=== PATIENT | female | born 1975 | race Hispanic/Latino ===

== ENCOUNTER 2016-09-22 20:35 | Emergency (ER) | payer OTHER ==
[2016-09-22 20:35] VITALS: BMI 26.5
[2016-09-22 21:41] VITALS: BP 105/64; PULSE 70; RESP 16; TEMP 97.3; O2SAT 98
--- NOTE | 2016-09-22 23:55 | C.PDOC ---
History Of Present Illness 40 year old patient, with a past medical history of hypertension, anxiety, depression, bipolar disorder, and schizophrenia, is brought to the ED by ambulance complaining of feeling anxious. Patient is a poor historian. She was sleeping during the the history and physical exam. Patient denies any depression , suicidal or homicidal ideation. Time Seen by Provider: 09/22/16 22:07 Chief Complaint (Nursing): Anxiety History Per: Patient History/Exam Limitations: no limitations Onset/Duration Of Symptoms: Other Current Symptoms Are (Timing): Still Present Suicide/Self Injury Attempted (Context): None Modifying Factor(s): None Severity: None Pain Scale Rating Of: 0 Associated Symptoms: Anxiety Recent travel outside of the [place]: No Past Medical History Reviewed: Historical Data, Nursing Documentation, Vital Signs Vital Signs: Last Vital Signs Temp 97.3 F L 09/22/16 21:38 Pulse 70 09/22/16 21:38 Resp 16 09/22/16 21:38 BP 105/64 09/22/16 21:38 Pulse Ox 98 09/23/16 04:38 - Medical History PMH: Anxiety, Bipolar Disorder, Depression, HTN, Schizophrenia Family History: States: Unknown Family Hx - Social History Hx Tobacco Use: Yes Hx Alcohol Use: Yes Hx Substance Use: Yes - Immunization History Hx Tetanus Toxoid Vaccination: No Hx Influenza Vaccination: No Hx Pneumococcal Vaccination: No Review Of Systems Except As Marked, All Systems Reviewed And Found Negative. Cardiovascular: Negative for: Chest Pain, Palpitations Respiratory: Negative for: Shortness of Breath Psych: Positive for: Anxiety. Negative for: Depression, Suicidal ideation Physical Exam - Physical Exam Appears: Non-toxic, No Acute Distress, Other (drowsy but arousable to vocal and tactile stimuli) Skin: Warm, Dry Head: Atraumatic, Normacephalic Eye(s): bilateral: Normal Inspection Neck: Normal ROM, Supple Chest: Symmetrical Cardiovascular: Rhythm Regular Respiratory: Normal Breath Sounds, No Wheezing Extremity: No Other (tremors) Neurological/Psych: Oriented x3 Gait: Steady ED Course And Treatment ECG: Interpreted By Me, Viewed By Me ECG Rhythm: Sinus Rhythm ECG Interpretation: Normal Rate From EC (bpm) O2 Sat by Pulse Oximetry: 98 (RA) Pulse Ox Interpretation: Normal Interpretation Of Abnormal: No ST/T wave abnormalities Progress Note: Patient's vitals are stable, and she is in no acute distress. She is instructed to follow up with her PMD and to continue taking medications are prescribed. Return if symptoms worsen. 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 - Scribe Statement The provider has reviewed the documentation as recorded by the Scribe Virginie Mendoza All medical record entries made by the Scribe were at my direction and personally dictated by me. I have reviewed the chart and agree that the record accurately reflects my personal performance of the history, physical exam, medical decision making, and the department course for this patient. I have also personally directed, reviewed, and agree with the discharge instructions and disposition.
--- NOTE | 2016-09-30 12:11 | CARD ---
APPROVED REPORT EKG Measurement Heart [id number] <Conclusion> Normal sinus rhythm Nonspeciic ST / T wave abnormality Prolonged QT Abnormal ECG
== END 2016-09-23 00:50 | disposition home or self-care (01) ==
LOC: C.ER 20:35
DX: F41.9 Anxiety disorder, unspecified (principal)

== ENCOUNTER 2016-10-06 21:48 | Emergency (ER) | payer OTHER ==
[2016-10-06 21:49] VITALS: BMI 26.5
[2016-10-06 22:45] VITALS: BP 108/69; PULSE 74; RESP 18; TEMP 98; O2SAT 96
--- NOTE | 2016-10-07 00:13 | C.PDOC ---
History Of Present Illness 40 year old patient is brought to the ED by ambulance for public intoxication. She has a history of alcoholism. Patient was with her boyfriend. Patient requests to be discharged. Patient denies all other complaints at this time. Time Seen by Provider: 10/07/16 00:04 Chief Complaint (Nursing): Substance Abuse History Per: Patient History/Exam Limitations: intoxication Onset/Duration Of Symptoms: Other Current Symptoms Are (Timing): Still Present Suicide/Self Injury Attempted (Context): None Modifying Factor(s): Alcohol Severity: None Pain Scale Rating Of: 0 Associated Symptoms: Other Recent travel outside of the [place]: No Additional History Per: EMS, Boyfriend Past Medical History Reviewed: Historical Data, Nursing Documentation, Vital Signs Vital Signs: Last Vital Signs Temp 98.0 F 10/06/16 22:40 Pulse 74 10/06/16 22:40 Resp 18 10/06/16 22:40 BP 108/69 10/06/16 22:40 Pulse Ox 96 10/07/16 00:13 - Medical History PMH: Anxiety, Bipolar Disorder, Depression, HTN, Schizophrenia Family History: States: Unknown Family Hx - Social History Hx Tobacco Use: Yes Hx Alcohol Use: Yes Hx Substance Use: No - Immunization History Hx Tetanus Toxoid Vaccination: Yes Hx Influenza Vaccination: Yes Hx Pneumococcal Vaccination: Yes Review Of Systems Except As Marked, All Systems Reviewed And Found Negative. Constitutional: Negative for: Fever Gastrointestinal: Negative for: Nausea, Vomiting Psych: Negative for: Suicidal ideation Physical Exam - Physical Exam Appears: Non-toxic, No Acute Distress, Other (intoxicated, easily arousable) Skin: Warm, Dry Head: Atraumatic, Normacephalic Neck: Normal ROM, Supple Chest: Symmetrical Cardiovascular: Rhythm Regular Respiratory: No Accessory Muscle Use Gastrointestinal/Abdominal: Soft, No Tenderness Back: Normal Inspection, No CVA Tenderness Extremity: Normal ROM Neurological/Psych: Oriented x3 Gait: Other (stable) ED Course And Treatment O2 Sat by Pulse Oximetry: 96 (RA) Pulse Ox Interpretation: Normal Medical Decision Making Medical Decision Making: alcohol abuse, BIBA for public intox easily arousable wants d/c to street Disposition Doctor Will See Patient In The: Office Counseled Patient/Family Regarding: Studies Performed, Diagnosis - Disposition Referrals: Alcoholics Anonymous [Outside] [facility] [Outside] [facility] [Outside] Disposition: HOME/ ROUTINE Disposition Time: 00:13 Condition: GOOD Instructions: Abuse of Alcohol (ED) - Clinical Impression Clinical Impression: Alcohol intoxication - Scribe Statement The provider has reviewed the documentation as recorded by the Scribe Virginie Mendoza Provider Attestation: All medical record entries made by the Scribe were at my direction and personally dictated by me. I have reviewed the chart and agree that the record accurately reflects my personal performance of the history, physical exam, medical decision making, and the department course for this patient. I have also personally directed, reviewed, and agree with the discharge instructions and disposition.
== END 2016-10-07 00:25 | disposition home or self-care (01) ==
LOC: C.ER 21:48
DX: F10.220 Alcohol dependence with intoxication, uncomplicated (principal); Y90.9 Presence of alcohol in blood, level not specified